=== PATIENT | female | born 1960 | race American Indian/Alaskan Native ===

== ENCOUNTER 2021-12-17 11:01 | Day surgery (SDC) | payer MEDICARE ==
[2021-12-17] MEDS ORDERED: HEPARIN/NS 5000 UNIT/500ML 1,500 ML IR ONE (12:09)
[2021-12-17] MEDS ORDERED: HEPARIN 10,000 UNITS/10 ML VIAL ONE (12:09)
[2021-12-17] MEDS ORDERED: SODIUM CHLORIDE 0.9% 1000 ML 1,000 ML IV SCH (12:30)
[2021-12-17 12:35] LABS: Hematocrit 39.5 % (30.3-42.9); Mean Corpuscular HGB Conc 33 % (30-34); Mean Corpuscular Volume 90 fl (79-97); Platelet Count 366 K/mm3 (140-440); Red Blood Count 4.37 M/mm3 (3.65-5.03); Red Cell Distribution Width 14.9 % (13.2-15.2)
--- NOTE | 2021-12-17 12:41 | Anesthesia Consultation ---
Anesthesia Consult and Med Hx Date of service: 12/17/21 - Airway Anesthetic Teeth Evaluation: Good ROM Head & Neck: Adequate Mental/Hyoid Distance: Adequate Mallampati Class: Class II Intubation Access Assessment: Probably Good - Pulmonary Exam CTA: Yes - Pre-Operative Health Status ASA Pre-Surgery Classification: ASA3 Proposed Anesthetic Plan: MAC - Pulmonary Hx Smoking: Yes (Half pack per day) COPD: Yes Home Oxygen Therapy: No Hx Sleep Apnea: No (Snores; yet to get a study) - Cardiovascular System Hx Hypertension: Yes Hx Heart Attack/AMI: No Hx Angina: No - Central Nervous System CVA: No Hx Psychiatric Problems: No - Gastrointestinal Hx Gastroesophageal Reflux Disease: Yes (Hiatal Hernia) - Endocrine Hx Renal Disease: No Hx Liver Disease: Yes (Fatty Liver) Hx Insulin Dependent Diabetes: No Hx Non-Insulin Dependent Diabetes: No Hx Thyroid Disease: Yes Hx Hypothyroidism: Yes - Other Systems Hx Alcohol Use: No Hx Obesity: Yes (BMI 48.9kg) - Additional Comments Anesthesia Medical History Comments: Denied previous anesthesia complications
--- NOTE | 2021-12-17 12:46 | Anesthesia Day of Surgery ---
Anesthesia Day of Surgery - Day of Surgery Patient Examined: Yes Patient H&P Reviewed: Yes Patient is NPO: Yes Beta Blockers: No Cardiac Clearance: No Pulmonary Clearance: No
[2021-12-17 12:49] LABS: BUN/Creatinine Ratio 18; Blood Urea Nitrogen 14 mg/dL (7-17); Calcium 9.8 mg/dL (8.4-10.2); Hemolysis Index 113
[2021-12-17 13:04] LABS: INR 0.81 (0.87-1.13)
[2021-12-17 13:05] LABS: Partial Thromboplastin Time 32.1 Sec. (24.2-36.6)
[2021-12-17] MEDS ORDERED: propofoL 200 MG/20 ML VIAL IV ONE ×4 (13:16)
[2021-12-17] MEDS ORDERED: HYDROmorphone 1 MG/1 ML INJ ONE (13:16)
[2021-12-17] MEDS ORDERED: SODIUM CHLORIDE 0.9% 1000 ML 1,000 ML ONE (13:16)
--- NOTE | 2021-12-17 13:16 | Short Stay Summary ---
Short Stay Documentation Date of service: 12/17/21 Narrative H&P: Right 5th toe ischemic ulcer Right iliac artery high grade stenosis. - History H&P: obtained from office Past Medical History: arthritis, diabetes, hyperthyroidism, hypertension, hyperlipidemia - Allergies and Medications Current Medications: Allergies lisinopril Adverse Reaction (Verified 12/17/21 12:19) cough Active Medications Sodium Chloride (Nacl 0.9% 1000 Ml) 1,000 mls @ 42 mls/hr IV DIRECT JUAN - Physical exam General appearance: no acute distress, well-nourished HEENT: Atraumatic Lungs: Clear to auscultation Breasts: deferred Heart: Regular rate, Normal S1, Normal S2 Gastrointestinal: normal Female Genitourinary: deferred Rectal Exam: deferred Extremities: abnormal (Diminished pulses in Right side. 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
[2021-12-17] MEDS ORDERED: KETAMINE/STERILE WATER 50 MG/ML SYRINGE ONE (13:17)
[2021-12-17] MEDS: LIDOCAINE (2%) 20 MG/1 ML VIAL 50 ML MDV INFILTRATI ONE ×2 (13:35→13:48)
[2021-12-17] MEDS ORDERED: CLOPIDOGREL 300 MG TAB ONE (15:08)
[2021-12-17] MEDS ORDERED: CLOPIDOGREL 300 MG TAB PO ONE (15:09)
[2021-12-17 15:33] LABS: Basophils % (Manual) 0 % (0.0-1.8); Total Cells Counted 100
[2021-12-17 15:34] LABS: Platelet Estimate Consistent w Auto; RBC Morphology Normal
--- NOTE | 2021-12-17 19:26 | Post Anesthesia Evaluation ---
- Post Anesthesia Evaluation Patient Participated: Yes Airway Patent: Yes Stable Respiratory Function: Yes Nausea/Vomiting: No Temp > 96.8F: Yes Pain Manageable: Yes Adequeate Hydration: Yes Anesthesia Complications: No Block Receding Appropriately: Not Applicable Patient on Ventilator: No
[2021-12-17 19:46] VITALS: BP 145/78
--- NOTE | 2021-12-25 14:19 | Operative Report ---
DATE OF SURGERY: 12/17/2021 PROCEDURE: Right lower extremity arteriogram and right iliac stent placement and IVUS evaluation noncoronary. MEDICATIONS USED: Lidocaine 1%, 5 mL CONTRAST: Visipaque 50 mL HEPARIN: 5000 units intravenously. INDICATIONS: Right fifth toe ulcer with pain. PROCEDURE TECHNIQUE: Following informed and written consent, the patient was placed supine on the angiographic table and the right groin was prepped and draped in the usual sterile fashion. Lidocaine was used for local and deep anesthetic. With the aid of ultrasound guidance, a micropuncture access set was utilized to access the right common femoral artery. Initially, a 4-[place] vascular sheath was inserted and contrast was injected down the right lower extremity to perform DSA hand injection runoff to the foot. A 4-[place] vertebral catheter with a 0.014 inch guidewire was negotiated into the abdominal aorta. An [place] 0.014 IVUS catheter was advanced over the guidewire and positioned within the abdominal aorta and pullback video recording imaging was performed of the distal abdominal aorta, right common iliac, right external iliac and common femoral artery. At this point, a 4 x 40 mm balloon was initially used to dilate the area of stenosis. Subsequently, using the vertebral catheter the 0.014 wire was exchanged for the 0.035 Glidewire and a 7 x 29 mm VBX Viabahn covered stent was placed across the area of stenosis in the distal common iliac and proximal external iliac arteries. Post-placement DSA imaging was obtained through the vertebral catheter and then the right groin access site was closed using an Angio-Seal closure device. This, however, failed and manual compression was applied for 15-20 minutes. The patient was taken to the outpatient procedure unit holding area for recovery for 4 hours and then discharged without any complications. FINDINGS: There is a high-grade greater than 80% stenosis involving the right external iliac artery at the origin of the internal iliac artery. This is identified on DSA imaging as well as IVUS imaging. The diameter of the external iliac artery measures between 6 and 7 mm. Following stent placement, there was less than 10% residual stenosis in this area. Right lower extremity runoff demonstrated patent common femoral artery as well as a proximal SFA as well as a patent proximal superficial femoral artery. There is short segment occlusion of the mid SFA with extensive collaterals resulting in reconstitution of the mid SFA. The segment of occlusion is approximately 3-4 cm. The popliteal artery is widely patent. There is 3-vessel runoff present. IMPRESSION: 1. High-grade stenosis of the right external iliac artery with resolution following successful covered 7 x 29 mm stent placement. 2. 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 3. The patient was discharged following loading dose of Plavix and prescription for Plavix once a day along with a low dose aspirin of 81 mg. The patient to follow up with her transmission inspector for debridement of the ulceration and follow up in our office in 1 month. TID: [id number] RECEIPT: [id number] MITALI/CHARMAINE
== END 2021-12-17 19:45 | disposition home or self-care (01) ==
LOC: CATHLABREC 11:01 → CATH 11:01 → CATHLABREC 19:45
PROVIDERS: ATTEND Radiology Vascular & Interventional Radiology
DX: E11.52 Type 2 diabetes mellitus with diabetic peripheral angiopathy with gangrene (principal); R22.43 Localized swelling, mass and lump, lower limb, bilateral; E78.00 Pure hypercholesterolemia, unspecified; I10 Essential (primary) hypertension; J44.9 Chronic obstructive pulmonary disease, unspecified; K21.9 Gastro-esophageal reflux disease without esophagitis; E66.9 Obesity, unspecified; E03.9 Hypothyroidism, unspecified; K76.0 Fatty (change of) liver, not elsewhere classified; Z98.890 Other specified postprocedural states; Z79.899 Other long term (current) drug therapy; Z88.8 Allergy status to other drugs, medicaments and biological substances; Z98.51 Tubal ligation status; Z90.710 Acquired absence of both cervix and uterus; Z68.42 Body mass index [BMI] 45.0-49.9, adult
CPT/HCPCS: 36415; 37221; 37252; 75710; 76937; 80048; 85007; 85025; 85610; 85730; C1725; C1753; C1760; C1769; C1874; C1894; J1170; J1644; J2704; J3490; J7030; Q9967